=== PATIENT | female | born 2000 | race Caucasian/White ===

== ENCOUNTER 2025-03-31 04:29 | Emergency (ER) | payer MEDICAID, OTHER ==
[~2025-03-31] VITALS: Ht 160 cm; Wt 76.0 kg
[~2025-03-31 04:29] MED LIST: NAPR-679 PO; P20 PO
[2025-03-31 04:59] VITALS: O2SAT 98
[2025-03-31 06:33] VITALS: BP 120/76; PULSE 66; RESP 15; TEMP 36.8; O2SAT 99
[2025-03-31 06:44] LABS: CLARITY URINE CLEAR (CLEAR); COLOR URINE YELLOW (YELLOW); GLUCOSE URINE NEGATIVE (NEGATIVE); KETONES URINE TRACE (NEGATIVE); LEUKOCYTE ESTERASE URINE 1+ (NEGATIVE); NITRITE URINE NEGATIVE (NEGATIVE); OCCULT BLOOD URINE NEGATIVE (NEGATIVE); PH URINE 7.5 (4.5-8.0); PROTEIN URINE TRACE (NEGATIVE); SPECIFIC GRAVITY URINE 1.029 (1.005-1.030)
[2025-03-31 07:01] LABS: SQUAMOUS EPITHELIAL CELL URINE 1+ /lpf (RARE/1+)
[2025-03-31 07:03] LABS: RBC URINE NONE SEEN /hpf (0-2); WBC URINE 0-2 /hpf (0-2)
[2025-03-31 07:04] LABS: BACTERIA URINE 1+
== END 2025-03-31 06:47 | disposition left against medical advice (07) ==
LOC: ER 04:29
DX: N93.9 Abnormal uterine and vaginal bleeding, unspecified (principal); Z53.21 Procedure and treatment not carried out due to patient leaving prior to being seen by health care provider
CPT/HCPCS: 81003

== ENCOUNTER 2025-07-25 11:42 | Emergency (ER) | payer MEDICAID ==
[~2025-07-25] VITALS: Ht 165.1 cm; Wt 75.0 kg
[2025-07-25 11:48] VITALS: O2SAT 100
[2025-07-25 12:06] LABS: BASOPHILS % 0.9 % (0.0-2.0); EOSINOPHILS % 1.1 % (0.0-5.0); HEMATOCRIT. 39.6 % (36.0-48.0); HEMOGLOBIN. 13.3 g/dL (12.0-16.0); LYMPHOCYTES % 17.5 % (20.0-50.0); MEAN PLATELET VOLUME 8.6 fl (7.4-10.4); MONOCYTES % 5.0 % (2.0-8.0); NEUTROPHILS % 75.5 % (40.0-76.0); PLATELET 265 x1000/uL (130-400); RED BLOOD CELL COUNT 4.86 mill/uL (4.2-5.4); RED CELL DISTRIBUTION WIDTH 14.2 % (11.6-14.6)
[2025-07-25 12:21] LABS: CREATININE 0.5 mg/dL (0.6-1.0); UREA NITROGEN BLOOD 8 mg/dL (9-23)
[2025-07-25 12:36] LABS: HCG SCREEN NEGATIVE
[2025-07-25] MEDS: KETOROLAC 15MG/ML VIAL IV ONE (13:46)
[2025-07-25] MEDS: ACETAMINOPHEN 1000MG/100ML 100 ML IV ONE (13:47)
[2025-07-25] MEDS: SODIUM CHLORIDE 0.9% 1,000 ML IV ONE (13:47)
[2025-07-25 13:49] LABS: CLARITY URINE CLOUDY (CLEAR); COLOR URINE YELLOW (YELLOW); PH URINE 6.5 (4.5-8.0); PROTEIN URINE NEGATIVE (NEGATIVE); SPECIFIC GRAVITY URINE 1.010 (1.005-1.030)
[2025-07-25 13:50] LABS: GLUCOSE URINE NEGATIVE (NEGATIVE); KETONES URINE NEGATIVE (NEGATIVE); LEUKOCYTE ESTERASE URINE 1+ (NEGATIVE); NITRITE URINE NEGATIVE (NEGATIVE); OCCULT BLOOD URINE NEGATIVE (NEGATIVE); UROBILINOGEN URINE 0.2 E.U./dL (0.2-1.0)
[2025-07-25] MEDS: CEFTRIAXONE 1GM/50ML 50 ML IV NR (14:00)
[2025-07-25] MEDS ORDERED: PRED10TA PO (14:03)
[2025-07-25 14:24] LABS: BACTERIA URINE 1+; SQUAMOUS EPITHELIAL CELL URINE 3+ /lpf (RARE/1+)
[2025-07-25 14:25] LABS: RBC URINE NONE SEEN /hpf (0-2)
[2025-07-25] MEDS ORDERED: CEPH500C2 MT (15:48)
[2025-07-25] MEDS ORDERED: POLY17PO3 MT (15:48)
[2025-07-25 15:50] VITALS: BP 105/64; PULSE 77; RESP 18; TEMP 37.1; O2SAT 98
[2025-07-25] MEDS ORDERED: IBUP-2030 MT (15:55)
[2025-07-25] MEDS: LACTULOSE 20G/30ML UDC PO NR (16:04)
== END 2025-07-25 16:15 | disposition home or self-care (01) ==
LOC: ER 11:42
DX: N39.0 Urinary tract infection, site not specified (principal); K59.00 Constipation, unspecified; M06.9 Rheumatoid arthritis, unspecified
CPT/HCPCS: 80048; 81003; 81025; 84703; 83690; 85025; 36415; 74176; 76830; 76856; 96365; 96366; 96375; 99285; J0696; J1885; J7030; Z7610; J0131